=== PATIENT | male | born 1975 | race Caucasian/White ===

== ENCOUNTER 2019-07-21 15:27 | Outpatient (CLI) | payer BC, SELFPAY ==
[2019-07-21 16:18] LABS: Hemoglobin A1C 5.2 % (3.8-5.6)
[2019-07-21 16:30] LABS: ALT 84 U/L (16-63); AST 23 U/L (15-37); Albumin 4.3 g/dL (3.4-5.0); Alkaline Phosphatase 89 U/L (46-116); Anion Gap 4.1 mmol/L (3-11); BUN 9 mg/dL (7-18); Bilirubin, Total 1.5 mg/dL (0.2-1.0); CO2 30.9 mmol/L (21.0-32.0); CREATININE 0.92 mg/dL (0.70-1.30); Calcium 9.3 mg/dL (8.5-10.1); Calculated LDL 107 mg/dL (<100); Chloride 101 mmol/L (98-107); Cholesterol 192 mg/dL (<200); Glucose 95 mg/dL (74-106); HDL Cholesterol 60 mg/dL (40-60); Potassium 4.4 mmol/L (3.5-5.1); Sodium 136 mmol/L (136-145); Total Protein 7.6 g/dL (6.4-8.2); Triglyceride 129 mg/dL (<150)
== END 2019-07-21 15:47 ==
PROVIDERS: PCP Emergency Medicine; Visit Provider Nurse Practitioner
DX: R10.11 Right upper quadrant pain (principal); Z13.1 Encounter for screening for diabetes mellitus; Z13.220 Encounter for screening for lipoid disorders; Z13.6 Encounter for screening for cardiovascular disorders
CPT/HCPCS: 36415; 80053; 80061; 83036

== ENCOUNTER 2019-07-26 09:10 | Outpatient (CLI) | payer BC, SELFPAY ==
--- NOTE | 2019-07-26 07:30 | DI.US_ITS ---
EXAM: ABDOMEN ULTRASOUND CLINICAL HISTORY: ABDOMEN PAIN RUQ, R10.11 TECHNIQUE: Ultrasound abdomen performed using standard protocol. COMPARISON: ABDOMEN ULTRASOUND (P) from 02/08/2017 FINDINGS: LIVER: Diffuse increased echogenicity consistent with hepatic steatosis. There is again seen a cyst in the anterior and superior aspect of the left lobe of the liver. It is unchanged in size compared to the prior examination. Hepatopedal flow in the Portal Vein. GALLBLADDER: No evidence of cholelithiasis. No evidence of wall thickening. No pericholecystic fluid identified. KIDNEYS: Kidneys are symmetric in size. No evidence of renal calculi. No evidence of hydronephrosis. No renal mass or cyst identified. BILIARY SYSTEM: Common bile duct measures 3.5 mm. No intrahepatic biliary ductal dilation. UGALDE'S SIGN: Positive PANCREAS: Normal where visualized. SPLEEN: Not enlarged. ABDOMINAL AORTA AND IVC: Visualized portions normal caliber. ASCITES: None seen. IMPRESSION: 1. Hepatic steatosis. 2. Stable cyst in the anterior/superior aspect of the left lobe of the liver. 3. No evidence of cholelithiasis or biliary ductal dilatation. The patient did experience right uppe r quadrant tenderness during the examination. DATA REPOSITORY:
== END 2019-07-26 09:30 ==
PROVIDERS: PCP Emergency Medicine; Visit Provider Nurse Practitioner
DX: R10.11 Right upper quadrant pain (principal); K76.0 Fatty (change of) liver, not elsewhere classified; K76.89 Other specified diseases of liver
CPT/HCPCS: 76700

== ENCOUNTER 2019-08-11 16:06 | Outpatient (CLI) | payer BC, SELFPAY ==
[2019-08-11 17:15] LABS: ALT 66 U/L (16-63); AST 27 U/L (15-37); Albumin 4.2 g/dL (3.4-5.0); Alkaline Phosphatase 89 U/L (46-116); Bilirubin, Direct 0.22 mg/dL (0.00-0.20); Total Protein 7.3 g/dL (6.4-8.2)
== END 2019-08-11 16:26 ==
PROVIDERS: PCP Emergency Medicine; Visit Provider Nurse Practitioner
DX: R10.11 Right upper quadrant pain (principal); R74.0 Nonspecific elevation of levels of transaminase and lactic acid dehydrogenase [LDH]
CPT/HCPCS: 36415; 80076

== ENCOUNTER 2021-03-11 02:53 | Outpatient (CLI) | payer BC, SELFPAY ==
[2021-03-11 12:33] LABS: HCT 46.6 % (40.0-50.0); HGB 15.5 g/dL (13.5-17.5); MCH 29.6 pg (27.0-33.0); MCHC 33.3 % (32.0-36.0); MCV 88.9 fL (80-95); MPV 9.8 fL (8.0-11.0); Platelet Count 212 10^3/uL (130-400); RBC 5.24 10^6/uL (4.36-5.78); RDW 11.9 % (11.8-14.1)
[2021-03-11 13:34] LABS: ALT 47 U/L (16-63); AST 19 U/L (15-37); Albumin 4.1 g/dL (3.4-5.0); Alkaline Phosphatase 85 U/L (46-116); Bilirubin, Direct 0.2 mg/dL (0.0-0.2); Bilirubin, Total 1.2 mg/dL (0.2-1.0); Total Protein 7.1 g/dL (6.4-8.2)
== END 2021-03-11 02:54 | disposition home or self-care (01) ==
LOC: LBO 02:53
PROVIDERS: PCP Nurse Practitioner; Visit Provider Nurse Practitioner
DX: K92.1 Melena (principal); R74.01 Elevation of levels of liver transaminase levels
CPT/HCPCS: 36415; 80076; 85027

== ENCOUNTER 2021-03-21 01:29 | Outpatient (CLI) | payer BC, SELFPAY ==
[2021-03-21 10:24] LABS: Source Nasal/Nares
[2021-03-21 13:32] LABS: COVID-19 PCR Negative (Negative)
== END 2021-03-21 01:30 | disposition home or self-care (01) ==
LOC: LBO 01:29
PROVIDERS: PCP Nurse Practitioner; Visit Provider Surgery
DX: Z20.822 Contact with and (suspected) exposure to COVID-19 (principal)
CPT/HCPCS: 87635

== ENCOUNTER 2021-03-24 11:15 | Day surgery (SDC) | payer BC, SELFPAY ==
--- NOTE | 2021-03-24 06:34 | W.ANESPRE ---
General Info Date of Service Date Performed: 03/24/21 Height: 5 ft 6 in Weight: 97.778 kg Body Mass Index (BMI): 34.7 Surgical Procedure: Operation Date: 03/24/21 12:25 Proposed Procedures Side Surgeon p Colonoscopy Halley Carrizales MD s Hemorrhoid Banding Halley Carrizales MD Meds Allergies and Home Medications Allergies Allergy/AdvReac Type Severity Reaction Status Date / Time No Known Allergies Allergy Unverified 03/24/21 11:26 Home Medication Medication Instructions Recorded hydrocortisone 2.5 % topical cream 1 applic ME BID-QID PRN #30 g 03/07/21 with perineal applicator aspirin 325 mg tablet 325 mg PO DAILY PRN 03/20/21 bisacodyl 5 mg tablet,delayed 5 mg PO ONCE #4 tab 03/20/21 release polyethylene glycol 3350 17 17 g PO ONCE #238 g 03/20/21 gram/dose oral powder Current Visit Medications: Current Medications Generic Name Dose Route Start Last Admin Trade Name Freq PRN Reason Stop Dose Admin Ringer's Solution 1,000 mls @ 80 mls/hr 03/24/21 06:00 IV 04/20/21 23:59 INFUSION [facility] IV Miscellaneous Supplies 1 each 03/24/21 06:00 Iv Access IV 04/20/21 23:59 DIRECTED GURPREET Metronidazole 500 mg 03/24/21 06:00 Metronidazole 500 Mg Tab PO 03/24/21 16:00 PREOP GURPREET Sodium Chloride 0 ml 03/24/21 06:00 Normal Saline Flush 10 Ml Syr IV 04/20/21 23:59 PRN PRN Sodium Chloride 0 ml 03/24/21 06:00 Normal Saline 10 Ml Vial IJ 04/20/21 23:59 DIRECTED PRN Sterile Water 0 ml 03/24/21 06:00 Water,Injection,Sterile 10 Ml Vial IJ 04/20/21 23:59 DIRECTED PRN PFSH Active Problems Active Problems: Problem Status Onset Code Bleeding external hemorrhoids K64.4 Blood in stool K92.1 Abdominal pain R10.9 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 Low back pain M54.5 Elevated ALT measurement R74.0 Medical History Medical History Community acquired pneumonia Tobacco Smoking/Tobacco Use Status: Never Passive smoking exposure: No Second hand exposure: No Alcohol Alcohol Intake: current Alcohol intake frequency: a few times a week Alcohol type: beer Substance Use Substance use: Occasionally Substance use type: marijuana Vital Signs and Lab Results Vital Signs Most Recent Vital Signs in EMR: Temp Pulse Resp BP Pulse Ox 36.4 C L 77 16 127/78 97 03/24/21 11:27 03/24/21 11:27 03/24/21 11:27 03/24/21 11:27 03/24/21 11:27 Lab Results Blood Type / Crossmatch: No Data to Display Complete Blood Count: White Blood Count 5.20 10^3/uL (4.4-10.8) 03/11/21 12:25 03/11/21 Red Blood Count 5.24 10^6/uL (4.36-5.78) 03/11/21 12:25 03/11/21 Hemoglobin 15.5 g/dL (13.5-17.5) 03/11/21 12:25 03/11/21 Hematocrit 46.6 % (40.0-50.0) 03/11/21 12:25 03/11/21 Platelet Count 212 10^3/uL (130-400) 03/11/21 12:25 03/11/21 Complete Metabolic Panel: Albumin 4.1 g/dL (3.4-5.0) 03/11/21 12:25 03/11/21 Liver Function Panel: Alanine Aminotransferase (ALT/SGPT) 47 U/L (16-63) 03/11/21 12:25 03/11/21 Aspartate Amino Transf (AST/SGOT) 19 U/L (15-37) 03/11/21 12:25 03/11/21 Coagulation Panel: No Data to Display Cardiac Panel: No Data to Display Arterial Blood Gas: No Data to Display Venous Blood Gas: No Data to Display Pancreas Panel: No Data to Display Thyroid Panel: No Data to Display Infectious Disease: Coronavirus (COVID-19)(PCR) Negative (Negative) 03/21/21 09:24 03/21/21 Coronavirus 2019 Source Nasal/Nares 03/21/21 09:24 03/21/21 Blood Cultures: No Data to Display Toxicology Panel: No Data to Display Anesthesia Assessment and Plan Anesthesia History Personal History: No History of Anesthesia Complications Family History: No Family History of Anesthesia Complications Exercise Tolerance Exercise Tolerance: Metabolic Equivalents>4 Cardiac & Pulmonary Exam Cardiac Exam: Normal S1/S2 Heart Sounds Pulmonary Exam: Clear Bilateral Breath Sounds Airway Exam Known Difficult Airway: No Mallampati Class: 2 Mouth Opening: Normal (> 3cm) Thyromental Distance: Greater than 3 cm Neck Range of Motion: Full ROM Neck Circumference: Normal Teeth Condition: Normal Dentition ASA Classification ASA Score: ASA 2 Emergency Case?: No NPO Status NPO Status: NPO Clears >2 hours, Solids >8 hours Anesthesia Plan Resuscitation Status: Full Code Anesthesia Technique: General Anesthesia Airway Planned: Natural Airway Monitors Used: Standard Monitors Preoperative Comments:: 45 yo male with blood in stool, fatigue and weight loss here for a colonoscopy. Sig PMHx: never smoker, occ EtOH/cannabis.
--- NOTE | 2021-03-24 06:52 | W.COLOREPORT ---
Colonoscopy Report Date of procedure: 03/24/21 Pre-op diagnosis general: Colon Cancer Screening Post-op diagnosis procedure note: other (polyps, diverticulosis and external hemorrhoids) Procedure: Colonoscopy with polypectomy Surgeon: Halley Carrizales Anesthesia Type: General:No Airway (Gelacio Proctor, NIXON) Estimated blood loss (mL): 5 Pathology: other (Ascending polyps x2, transverse polyp) Complications: None Disposition: same day Indications: Mr. Zarate is a pleasant 45-year-old gentleman who is here to discuss a colonoscopy. He has never had a colonoscopy before. He has noted some fatigue weight loss and some bright red blood per rectum which is most likely from his hemorrhoids. We discussed a screening colonoscopy with possible internal hemorrhoid banding. I did tell him that if his hemorrhoids were external this would require a bigger surgery. Risks, benefits were reviewed with him and he wished to proceed Risks, benefits and complications have been reviewed. Complications include but are not limited to bleeding, pain, perforation, missed small lesion/polyp, sore throat, aspiration and adverse reaction to the medications. Questions were entertained and answered to their satisfaction and they wished to proceed. No guarantees were given or implied. Prep: Miralax/Dulcolax Procedure Start Time: 12:50 Procedure End Time: 13:25 Retraction Time: 23 minutes Findings: 3 flat polyps- most likely pre-malignant Dave- diverticulosis External hemorrhoids Procedure Description: After informed consent was obtained the patient was taken to the procedure room and placed in a left decubitous position. Monitors were applied and a time out was done. The patients name, date of , procedure, allergies to medications and metal in their body was reviewed. The patient was then sedated. Once sedated and comfortable a rectal exam was done. External exam revealed Grade 2 external hemorrhoids. Internal exam revealed a decreased sphincter tone and no palpable masses. The prostate felt smooth. The scope was then introduced and retro-flexed. No internal hemorrhoids, polyps or masses were identified on retro-flexion. The scope was then advanced to the cecum without difficulty. The ileocecal vlave and appendiceal orifice were identified. The prep was adequate. The scope was then slowly retracted over 23 minutes back into the rectum. Polyps were removed with cold forceps in the ascending colon x2 and transverse colon x1. The more proximale ascending colon polyp was >10 mm in size.. There was mild dave- diverticulosis noted. The scope was removed and the patient was woken up and taken back to Same day surgery in stable condition. The patient tolerated the procedure well and there were no immediate complications. Follow up: The patient should follow up in 3 years unless they develop changes in bowel habits or other new gastrointestinal complaints.
--- NOTE | 2021-03-24 06:53 | W.PM.DSUDISC ---
Discharge Plan Disposition Patient Disposition: HOME Condition: Good Discharge Details Reason For Visit: colonoscopy Attending Provider: Halley Carrizales Primary Care Provider: Alexandra Moore Home Meds and New Rx's Prescriptions: Continued hydrocortisone [Anusol-HC] 2.5 % cream with perineal applicator 1 applic MO BID-QID PRN (Reason: hemorrhoids) Qty: 30 RF: 0 aspirin 325 mg tablet 325 mg PO DAILY PRNRF: 0 Discontinued bisacodyl [Dulcolax (bisacodyl)] 5 mg tablet,delayed release (DR/EC) 5 mg PO ONCE Qty: 4 RF: 0 polyethylene glycol 3350 17 gram/dose powder 17 g PO ONCE Qty: 238 RF: 0 Discharge Instructions Additional Instructions: Findings: 3 polyps- most likely Pre-malignant Diverticulosis External hemorrhoids Follow up: 3-5 years Please call if you develop: fevers >101.5 Nausea or Vomiting Abdominal pain that is not transient Rectal bleeding that is more then a tbsp A hard abdomen and inability to pass gas DAY SURGERY UNIT POST ENDOSCOPY INSTRUCTIONS Instructions for everyone who is given Anesthesia: For your safety, please do the following for the next 24 Hours: a. Do not drive or operate dangerous equipment b. Do not drink alcohol beverages or use any recreational drugs for the first 24 hours or while taking pain medications. The medications in your body may have a reaction that can be dangerous. c. Do not make any important decisions or sign any important papers 1. Generally there are no restrictions on your activity after a day or so has gone by, but you may feel a bit fatigued for a few days. 2. After you arrive home you may have a light meal and return to a normal diet as you can tolerate it without feeling sick to your stomach. 3. After surgery, you may feel pain or discomfort. This should be only transient, but if it persists please contact your doctor. 4. If there are any questions regarding the findings of your procedure, please feel free to contact your doctor. 6. If you are unable to contact your doctor with a problem, contact the hospital at [phone]. 7. Continue all your regular medications unless directed otherwise. I understand the above instructions and have no questions. Signature of Patient or Responsible Adult Escort Date/Time Name of Responsible Adult Escort Signature of Nurse Date/Time Activity:: Activity as Tolerated Diet:: high fiber diet Discharge Orders Discharge Orders: Discharge Order (Routine); Ordered 03/24/21 Ordered By: Halley Carrizales
[2021-03-24 11:27] VITALS: BP 127/78; PULSE 77; RESP 16; TEMP 36.4; O2SAT 97
[2021-03-24] MEDS: metroNIDAZOLE 500 MG TAB PO (11:37)
[2021-03-24] MEDS: Lactated Ringers 1,000 ML 80 ML IV (11:48)
[2021-03-24 12:34] VITALS: BMI 34.7
--- NOTE | 2021-03-24 13:02 | BOWEL_PTH ---
PATIENT: Brian Zarate LOC: [facility] U#:[id number] AGE/SX: 45/M ROOM: RE03/24/[address]: Halley Carrizales MD : 1975 BED: DIS: 03/24/2021 SPEC #: [id number] RECD: 03/24/21 18:22 STATUS: LINK RE #: [id number] JOSETTE: 03/24/21 13:[address]: Halley Carrizales DEPT: Surgical Specimen RECD BY: Julia Lindo ENTERED: 03/24/21 18:23 SP TYPE: Bowel OTHR DR: Alexandra Moore, PhD GLUE COOK Tissues: 1 - BIOPSY BOWEL 2 - BIOPSY BOWEL Procedures: GROSS AND MICRO LEVEL 4 Comments: [id number]
[2021-03-24 13:38] VITALS: BP 105/64; PULSE 77; RESP 18; TEMP 36.5; O2SAT 96
--- NOTE | 2021-03-24 13:49 | W.ANESPOSTOP ---
Postoperative Evaluation Date, Time and Location Date Performed: 03/24/21 Time Performed: 13:49 Patient Location: Day Surgery Unit Vital Signs Most Recent Imported Vital Signs: Most Recent Vital Signs Temp Pulse Resp BP Pulse Ox 36.5 C 77 18 105/64 96 03/24/21 13:38 03/24/21 13:38 03/24/21 13:38 03/24/21 13:38 03/24/21 13:38 Pain Score Most Recent Pain Score: Most Recent Pain Score Pain Level 0 03/24/21 13:38 Assessment Mental Status: Awake (Alert & Oriented to Patient Baseline) Airway and Respiratory Function: Patent airway with normal (patient baseline) respiratory exam Cardiovascular Function: Hemodynamically Stable Hydration Status: Adequately Hydrated Nausea & Vomiting: No Nausea or Vomiting Pain: Pt. Denies Any Pain Peripheral Nerve Block: Patient did not receive a nerve block
[2021-03-24 14:10] VITALS: BP 133/76; PULSE 65; RESP 16; TEMP 36.4; O2SAT 96
== END 2021-03-24 14:26 | disposition home or self-care (01) ==
LOC: SUR 11:16
PROVIDERS: PCP Nurse Practitioner; Visit Provider Surgery
PROC: 0DJD8ZZ Inspection of Lower Intestinal Tract, Via Natural or Artificial Opening Endoscopic (ICD-10-PCS; CPT 45378; principal; 2021-03-24 12:15)
DX: Z12.11 Encounter for screening for malignant neoplasm of colon (principal); K57.30 Diverticulosis of large intestine without perforation or abscess without bleeding; D12.2 Benign neoplasm of ascending colon; K64.4 Residual hemorrhoidal skin tags; D12.3 Benign neoplasm of transverse colon
CPT/HCPCS: 45380; 88305; J2001

== ENCOUNTER 2023-10-19 15:07 | Outpatient (REF) | payer BC, SELFPAY ==
[2023-10-19 21:14] LABS: Abs Immature Grans 0.01 10^3/uL (0.0-0.06); Absolute Basophil Count 0.03 10^3/uL (0.0-0.2); Absolute Eosinophil Count 0.18 10^3/uL (0.0-0.7); Absolute Lymphocyte Count 1.64 10^3/uL (1.2-3.4); Absolute Monocyte Count 0.49 10^3/uL (0.1-0.8); Absolute Neutrophil Count 4.21 10^3/uL (1.2-6.7); Basophils % 0.5 %; Eosinophils % 2.7 %; HCT 46.8 % (40.0-50.0); HGB 15.8 g/dL (13.5-17.5); Immature Grans % 0.2 %; MCH 29.4 pg (27.0-33.0); MCHC 33.8 % (32.0-36.0); MCV 87 fL (80-95); MPV 10.3 fL (8.0-11.0); Monocytes % 7.5 %; Neutrophils % 64.1 %; Platelet Count 254 10^3/uL (130-400); RBC 5.37 10^6/uL (4.36-5.78); RDW 12.3 % (11.8-14.1); RDW-SD 39.2 fL; WBC 6.56 10^3/uL (4.4-10.8)
[2023-10-19 21:51] LABS: ALT 44 U/L (16-63); AST 18 U/L (15-37); Albumin 4.1 g/dL (3.4-5.0); Alkaline Phosphatase 82 U/L (46-116); Anion Gap 3.8 mmol/L (3-11); BUN 10 mg/dL (7-18); Bilirubin, Total 0.9 mg/dL (0.2-1.0); CO2 29.2 mmol/L (21.0-32.0); Calcium 9.3 mg/dL (8.5-10.1); Calculated LDL 125 mg/dL (<100); Chloride 105 mmol/L (98-107); Cholesterol 217 mg/dL (<200); Estimated GFR 91.69 (mL/min/1.73m2); Glucose 89 mg/dL (74-106); HDL Cholesterol 62 mg/dL (40-60); Potassium 4.7 mmol/L (3.5-5.1); Sodium 138 mmol/L (136-145); TSH (W/Ref FT4) 1.63 uIU/mL (0.36-3.74); Total Protein 7.1 g/dL (6.4-8.2); Triglyceride 153 mg/dL (<150)
[2023-10-19 21:52] LABS: Hemoglobin A1C 5.4 % (<5.7)
== END 2023-10-19 15:08 | disposition home or self-care (01) ==
LOC: LBN 15:07
PROVIDERS: PCP Nurse Practitioner Family; Visit Provider Nurse Practitioner Family
DX: Z00.00 Encounter for general adult medical examination without abnormal findings (principal); D12.6 Benign neoplasm of colon, unspecified; R10.9 Unspecified abdominal pain; K90.41 Non-celiac gluten sensitivity
CPT/HCPCS: 80053; 80061; 83036; 84443; 85025

== ENCOUNTER → 2023-12-01 00:11 | Outpatient (CLI) | payer BC, SELFPAY ==
[2023-12-01] MEDS: Normal Saline - Diluent 50 ML VIAL IJ (09:34)
[2023-12-01] MEDS: Gadoterate meglumine 20 ML VIAL IVP (09:35)
--- NOTE | 2023-12-01 10:00 | DI.MRI_ITS ---
Exam(s) MR ABDOMEN WO/W EXAM: MR ABDOMEN WO/W CLINICAL HISTORY: liver lesion seen on CT, needs hemangioma protoco,k76.9 TECHNIQUE: Multiplanar multisequence MRI of the Abdomen was performed. CONTRAST MATERIAL: IV Contrast: 20 mL of Dotarem contrast administered. COMPARISON: US ABDOMEN ULTRASOUND (P) from 02/08/2017 CT ABD PELVIS WITH CONTRAST from 02/08/[address] ABDOMEN PELVIS W from 11/03/2023 FINDINGS: Liver: Smoothly marginated ovoid lesion in the anterior liver, subcapsular location. Measures 2.3 by 1.5 by 1.7 cm. It appears cystic on all sequences. No abnormal enhancement. Other tiny cysts are noted. Pancreas: Unremarkable. Gallbladder and Bile Ducts: Unremarkable. Adrenals: Unremarkable. Kidneys: Unremarkable. Spleen: Unremarkable. Aorta: Unremarkable. Soft Tissues: Unremarkable. Bone: Unremarkable. Lymph Nodes: Unremarkable. Bowel: No distention or wall thickening. Diverticulosis noted. No evidence of diverticulitis. Appe ndix normal. IMPRESSION: Lesion in anterior liver the consistent with a cyst. DATA REPOSITORY:
== END ==
PROVIDERS: PCP Nurse Practitioner Family; Visit Provider Nurse Practitioner Family
DX: K76.9 Liver disease, unspecified (principal); K76.89 Other specified diseases of liver
CPT/HCPCS: 74183

== ENCOUNTER 2023-12-20 02:39 | Outpatient (CLI) | payer BC, SELFPAY ==
[2023-12-24 16:59] LABS: Specimen WB Whole Blood
== END 2023-12-20 02:40 | disposition home or self-care (01) ==
LOC: LBO 02:40
PROVIDERS: PCP Nurse Practitioner Family; Visit Provider Nurse Practitioner Family
DX: K76.0 Fatty (change of) liver, not elsewhere classified (principal)
CPT/HCPCS: 36415; 81256

== ENCOUNTER 2024-06-19 01:23 | Outpatient (CLI) | payer BC, SELFPAY ==
--- NOTE | 2024-06-19 06:00 | ETT_ITS ---
APPROVED REPORT Exam: Exercise Treadmill Patient Location: Out-Patient Room/Bed: Stress Nurse: Laura Ames RN Ordering Provider:FIDEL JETT, Contact Number: [phone] BMI: 35.34 Baseline Rhythm: Sinus Rhythm Indications: Chest pressure Medical History Medical History: Increased BP readings, nonalcoholic fatty liver disease Cardiac Medications: Albuterol sulfate Allergies: NKA Cardiac Risk Factors: Family hx, obesity Previous Cardiac Procedures: None Pretest Chest Pain Characteristics: None Exercise History: Sedentary Physical Disabilities: None Lung Sounds: Clear to auscultation Heart Sounds: Regular Stress Test Details Test: Exercise stress testing was performed using a Randal protocol. Rest Stress HR Resting HR Supine: 78 bpm Max Heart Rate (APMHR): 170 bpm Resting HR Standin bpm Target HR (85% APMHR): 145 bpm Max HR Achieved: 150 bpm % of APMHR: 88 Recovery HR: 82 bpm HR response to stress: Normal HR response to stress BP Resting BP Supine: 148/82 mmHg Resting BP Standin/88 mmHg Max BP: 198/92 mmHg Recovery BP: 142/84 mmHg BP response to stress: Normal blood pressure response to stress. ECG Resting ECG: Sinus Rhythm Stress ECG: Sinus Rhythm ST Change: No significant ST segment changes noted Arrhythmia: Rare PVC Recovery ECG: Sinus Rhythm Recovery ST Change: No significant ST segment changes noted Recovery Arrhythmia: None Clinical Reason for Termination: Target HR Achieved Stress Symptoms: None Exercise duration: 05 min58 sec Highest Stage Reached: Stage 2: 2.5 mph at 12% grade. Exercise capacity: 8.21 METs Angina Score: None Hoyt Treadmill Score: 6.4 Rate Pressure Product: 12812 Stress ECG Conclusion 1. Resting electrocardiogram showed low voltage 2. Patient exercised on the Randal protocol completed workload of 8.21 METS 3. Normal heart rate and blood pressure response to exercise. The patient achieved 88% of predicted heart rate for age 4. There was no electrocardiographic evidence of myocardial ischemia 5. There were no significant dysrhythmias Hoyt Treadmill Score is 6.4 which is Low risk. Stress Test Summary STAGE Time (mins) Speed (mph) Grade (%) HR BP SpO2 SYMPTOMS METS Supine 78 148/82 95% Standing 85 144/88 1 3 1.7 10 120 180/90 93% 4.5 2 6 2.5 12 132 198/92 95% 7 3 9 3.4 14 150 10 1 min recovery 84 186/82 95% 3 min recovery 91 174/78 97% 6 min recovery 82 142/84 96%
== END 2024-06-19 01:43 ==
LOC: DI 01:24
PROVIDERS: PCP Nurse Practitioner Family; Visit Provider Internal Medicine Cardiovascular Disease
DX: R07.89 Other chest pain (principal)
CPT/HCPCS: 93017